=== PATIENT | female | born 1955 | race Caucasian/White ===

== ENCOUNTER → 2016-06-07 | Outpatient (CLI) | payer BC ==
[~2016-06-07] VITALS: Ht 162.6 cm; Wt 101.4 kg
[~2016-06-07] MED LIST: ALEVE 220MG220 MG PO; CONTRAVE1 TER PO; MOBIC15 MG PO; TOPROL XL 50MG50 MG PO; ULTRAM ER100 MG PO; ZEGERID 20 MG-11 CAP PO
[2016-06-07 17:02] VITALS: BP 140/80; PULSE 53
== END ==
LOC: LIGHT 06-09 13:38
DX: E16.1 Other hypoglycemia (principal); R73.01 Impaired fasting glucose; M17.0 Bilateral primary osteoarthritis of knee; E66.8 Other obesity; Z68.38 Body mass index [BMI] 38.0-38.9, adult

== ENCOUNTER → 2016-07-12 | Outpatient (CLI) | payer BC ==
[~2016-07-12] VITALS: Ht 162.6 cm; Wt 96.6 kg
[2016-07-12 15:59] VITALS: BP 142/76; PULSE 64
== END ==
LOC: LIGHT 15:56
DX: Z02.89 Encounter for other administrative examinations (principal)

== ENCOUNTER → 2016-11-08 | Outpatient (CLI) | payer BC ==
[~2016-11-08] VITALS: Ht 162.6 cm; Wt 90.0 kg
[2016-11-08 15:20] VITALS: BP 128/56; PULSE 60
== END ==
LOC: LIGHT 10-11 15:19
DX: E16.1 Other hypoglycemia (principal); R73.01 Impaired fasting glucose; E66.9 Obesity, unspecified; Z68.33 Body mass index [BMI] 33.0-33.9, adult; Z71.3 Dietary counseling and surveillance; M17.0 Bilateral primary osteoarthritis of knee

== ENCOUNTER → 2016-12-27 | Outpatient (CLI) | payer BC ==
[~2016-12-27] VITALS: Ht 162.6 cm; Wt 88.5 kg
[2016-12-27 16:35] VITALS: BP 134/60; PULSE 68
== END ==
LOC: LIGHT 11:12
DX: E16.1 Other hypoglycemia (principal); R73.01 Impaired fasting glucose; E66.9 Obesity, unspecified; Z68.33 Body mass index [BMI] 33.0-33.9, adult; Z71.3 Dietary counseling and surveillance; M17.0 Bilateral primary osteoarthritis of knee

== ENCOUNTER → 2017-02-21 | Outpatient (CLI) | payer BC ==
[~2017-02-21] VITALS: Ht 162.6 cm; Wt 84.6 kg
[2017-02-21 15:03] VITALS: BP 150/72; PULSE 64
== END ==
LOC: LIGHT 14:52
DX: E16.1 Other hypoglycemia (principal); R73.01 Impaired fasting glucose; E66.9 Obesity, unspecified; Z68.32 Body mass index [BMI] 32.0-32.9, adult; Z71.3 Dietary counseling and surveillance; M17.0 Bilateral primary osteoarthritis of knee
CPT/HCPCS: G0463

== ENCOUNTER → 2017-04-11 | Outpatient (CLI) | payer BC ==
[~2017-04-11] VITALS: Ht 162.6 cm; Wt 84.6 kg
[2017-04-11 17:21] VITALS: BP 130/80; PULSE 72
== END ==
LOC: LIGHT 16:26
DX: E16.1 Other hypoglycemia (principal); R73.01 Impaired fasting glucose; E66.9 Obesity, unspecified; Z68.32 Body mass index [BMI] 32.0-32.9, adult; Z71.3 Dietary counseling and surveillance; M17.0 Bilateral primary osteoarthritis of knee
CPT/HCPCS: G0463

== ENCOUNTER → 2017-06-13 | Outpatient (CLI) | payer BC ==
[~2017-06-13] VITALS: Ht 162.6 cm; Wt 83.2 kg
[2017-06-13 16:29] VITALS: BP 126/60; PULSE 72
== END ==
LOC: LIGHT 14:46
DX: E16.1 Other hypoglycemia (principal); R73.01 Impaired fasting glucose; E66.9 Obesity, unspecified; Z68.31 Body mass index [BMI] 31.0-31.9, adult; Z71.3 Dietary counseling and surveillance; M17.0 Bilateral primary osteoarthritis of knee
CPT/HCPCS: G0463

== ENCOUNTER → 2017-07-18 | Outpatient (CLI) | payer BC ==
[~2017-07-18] VITALS: Ht 162.6 cm; Wt 83.7 kg
[2017-07-18 15:17] VITALS: BP 120/60; PULSE 60
== END ==
LOC: LIGHT 14:06
DX: E16.1 Other hypoglycemia (principal); R73.01 Impaired fasting glucose; E66.9 Obesity, unspecified; Z68.31 Body mass index [BMI] 31.0-31.9, adult; Z71.3 Dietary counseling and surveillance; M17.0 Bilateral primary osteoarthritis of knee
CPT/HCPCS: G0463

== ENCOUNTER → 2017-11-07 | Outpatient (CLI) | payer BC ==
[~2017-11-07] VITALS: Ht 162.6 cm; Wt 82.6 kg
[2017-11-07 16:36] VITALS: BP 116/60; PULSE 68
== END ==
LOC: LIGHT 08-22 14:12
DX: E16.9 Disorder of pancreatic internal secretion, unspecified (principal); M17.0 Bilateral primary osteoarthritis of knee; E66.9 Obesity, unspecified; Z68.31 Body mass index [BMI] 31.0-31.9, adult; Z71.3 Dietary counseling and surveillance
CPT/HCPCS: G0463

== ENCOUNTER → 2018-04-17 | Outpatient (CLI) | payer BC ==
[~2018-04-17] VITALS: Ht 162.6 cm; Wt 87.5 kg
[~2018-04-17] MED LIST changes: +BELVIQ PO
[2018-04-17 16:57] VITALS: BP 150/70; PULSE 76
== END ==
LOC: LIGHT 12-12 13:36
DX: E16.9 Disorder of pancreatic internal secretion, unspecified (principal); R73.01 Impaired fasting glucose; E66.9 Obesity, unspecified; Z68.33 Body mass index [BMI] 33.0-33.9, adult; Z71.3 Dietary counseling and surveillance
CPT/HCPCS: G0463

== ENCOUNTER → 2018-06-12 | Outpatient (CLI) | payer BC ==
[~2018-06-12] VITALS: Ht 162.6 cm; Wt 86.9 kg
[2018-06-12 16:45] VITALS: BP 130/58; PULSE 68
== END ==
LOC: LIGHT 11:10
DX: E16.9 Disorder of pancreatic internal secretion, unspecified (principal); R73.01 Impaired fasting glucose; E66.9 Obesity, unspecified; Z68.32 Body mass index [BMI] 32.0-32.9, adult; Z71.3 Dietary counseling and surveillance
CPT/HCPCS: G0463

== ENCOUNTER → 2018-11-06 | Outpatient (CLI) | payer BC ==
[~2018-11-06] VITALS: Ht 162.6 cm; Wt 93.0 kg
[~2018-11-06] MED LIST changes: +BELVIQ XR20 MG PO; +SAXENDA6 MG/ML SQ
[2018-11-06 16:57] VITALS: BP 140/72; PULSE 68
== END ==
LOC: LIGHT 07-24 16:20
DX: E16.9 Disorder of pancreatic internal secretion, unspecified (principal); R73.01 Impaired fasting glucose; E66.9 Obesity, unspecified; Z68.35 Body mass index [BMI] 35.0-35.9, adult; Z71.3 Dietary counseling and surveillance
CPT/HCPCS: G0463

== ENCOUNTER → 2018-12-11 | Outpatient (CLI) | payer BC ==
[~2018-12-11] VITALS: Ht 162.6 cm; Wt 92.8 kg
[2018-12-11 15:16] VITALS: BP 132/76; PULSE 68
== END ==
LOC: LIGHT 14:02
DX: E16.9 Disorder of pancreatic internal secretion, unspecified (principal); R73.01 Impaired fasting glucose; E66.9 Obesity, unspecified; Z68.35 Body mass index [BMI] 35.0-35.9, adult; Z71.3 Dietary counseling and surveillance
CPT/HCPCS: G0463